=== PATIENT | female | born 1960 | race Caucasian/White ===

== ENCOUNTER → 2018-10-06 | Outpatient (CLI) | payer OTHER ==
--- NOTE | 2018-10-06 11:31 | MM ---
Reason for exam: screening (asymptomatic). Baseline mammogram. History: Patient is postmenopausal and history of other cancer. Physical Findings: Nurse did not find any significant physical abnormalities on exam. MG Screening Mammo w CAD Bilateral CC and MLO view(s) were taken. The breast tissue is heterogeneously dense. This may lower the sensitivity of mammography. Focal asymmetry right middle posterior depth upper inner quadrant. These results were verbally communicated with the patient and result sheet given to the patient on 10/06/18. ASSESSMENT: Incomplete: need additional imaging evaluation, BI-RAD 0 RECOMMENDATION: Special view mammogram of the right breast. If lesion persists on supplemental views, image directed ultrasound is recommended. [facility] will attempt to contact patient to return for supplemental views and ultrasound if indicated.
--- NOTE | 2018-10-06 11:32 | MM ---
Reason for exam: additional evaluation requested from abnormal screening. History: Patient is postmenopausal and history of other cancer. Physical Findings: Breast exam preformed at baseline screening. MG Work Up Mamm w CAD RT Spot compression CC, spot compression MLO, and LM view(s) were taken of the right breast. The breast tissue is heterogeneously dense. This may lower the sensitivity of mammography. No distinct lesion persists on additional views. These results were verbally communicated with the patient and result sheet given to the patient on 10/06/18. ASSESSMENT: Negative, BI-RAD 1 RECOMMENDATION: Return to routine screening mammogram schedule for both breasts.
== END | disposition home or self-care (01) ==
LOC: RADMAMWWP 10:11
PROVIDERS: ATTEND Family Medicine
DX: Z12.31 Encounter for screening mammogram for malignant neoplasm of breast (principal); R92.8 Other abnormal and inconclusive findings on diagnostic imaging of breast
CPT/HCPCS: 77065; 77067

== ENCOUNTER → 2019-08-17 | Outpatient (CLI) | payer OTHER | END | disposition home or self-care (01) | LOC: LABWHC1 09:52 | PROVIDERS: ATTEND Family Medicine | DX: Z12.11 Encounter for screening for malignant neoplasm of colon (principal) | CPT/HCPCS: 36415; 82272 ==

== ENCOUNTER → 2019-11-30 | Outpatient (CLI) | payer OTHER ==
--- NOTE | 2019-11-30 12:07 | CTL ---
EXAMINATION TYPE: CT Low Dose Lung DATE OF EXAM ORDERED: 11/30/2019 HISTORY: 59-year-old female Personal history of tobacco use. Lung cancer screening CT DLP: [address] CTDI: 1.76 mGy Automated exposure control for dose reduction was used. SCREENING VISIT: Baseline exam COMPARISON: None TECHNIQUE: Low dose computed tomography scan was performed through the chest at 1 mm thick sections. Coronal and sagittal reconstructions performed. Coronal MIP reconstruction also generated. CT DIAGNOSTIC QUALITY: Satisfactory FINDINGS: Heart normal size without pericardial effusion. Ascending aorta borderline ectatic at 3.6 cm. Mild atherosclerotic arch calcifications with conventio nal branching anatomy. A few nonenlarged mediastinal lymph nodes are present measuring up to 6 mm. No thoracic lymphadenopat hy by CT size criteria. Mild centrilobular emphysema. Mild diffuse bronchial wall thickening. Strandy atelectasis in the ri ght middle lobe. No consolidation or pleural effusion. Calcified granuloma peripheral right upper lobe, axial image 74. Calcified granuloma left midlung, axial image 166. 3 mm left lower lobe pulmonary nodule, axial image 183. Small fat-containing left Bochdalek hernia. Visualized upper abdomen shows an indeterminate 2.1 cm hypodense lesion medial upper pole right kidne y, probable cortical cyst. Renal ultrasound can confirm. Bones: Mild degenerative disc disease mid to lower thoracic spine. IMPRESSION: 1. LungRADS 2 - benign; a couple calcified granulomas and a tiny 3 mm left lower lobe pulmonary nodul e at baseline. 2. COPD with mild emphysema. 3. A 2.1 cm hypodense, indeterminate lesion in the upper pole of the right kidney. RECOMMENDATION: 1. Continue annual low-dose lung cancer screening CT. 2. Renal ultrasound to confirm a benign 2.1 cm right upper pole renal cyst. 3. Smoking cessation. FOLLOW UP CT CHEST RECOMMENDATION: [address] LUNG RAD: Lung-Rad 2 Benign Appearance or Behavior
== END | disposition home or self-care (01) ==
LOC: RADCTMAIN 10:54
PROVIDERS: ATTEND Family Medicine
DX: Z12.2 Encounter for screening for malignant neoplasm of respiratory organs (principal); R91.1 Solitary pulmonary nodule; J43.9 Emphysema, unspecified; J98.4 Other disorders of lung; F17.210 Nicotine dependence, cigarettes, uncomplicated

== ENCOUNTER 2019-12-05 18:14 | Observation (INO) | payer OTHER ==
[2019-12-05] MEDS ORDERED: SODIUM CHLORIDE 0.9% 1,000 ML IV STA ×2 (19:32)
[2019-12-05] MEDS ORDERED: MORPHINE SULFATE 4 MG/ML SYRINGE IV STA (19:32)
[2019-12-05] MEDS ORDERED: PANTOPRAZOLE 40 MG/10 ML VIAL IVP STA (19:32)
[2019-12-05] MEDS ORDERED: KETOROLAC 30 MG/ML 1 ML VIAL IVP STA (19:32)
[2019-12-05 19:58] LABS: Basophils # (A) 0.3 k/uL (0-0.2); Basophils % (A) 2 %; Eosinophils # (A) 0.3 k/uL (0-0.7); Eosinophils % (A) 2 %; HCT 39.5 % (34.0-46.0); HGB 12.7 gm/dL (11.4-16.0); Lymphocytes # (A) 1.6 k/uL (1.0-4.8); Lymphocytes % (A) 13 %; MCH 31.2 pg (25.0-35.0); MCHC 32.1 g/dL (31.0-37.0); MCV 97.3 fL (80.0-100.0); Mean Platelet Volume 7.9; Monocytes # (A) 0.5 k/uL (0-1.0); Monocytes % (A) 5 %; Neutrophils # (A) 8.9 k/uL (1.3-7.7); Neutrophils % (A) 76 %; Platelet Count 321 k/uL (150-450); RBC 4.05 m/uL (3.80-5.40); RDW 12.1 % (11.5-15.5); WBC 11.7 k/uL (3.8-10.6)
--- NOTE | 2019-12-05 20:10 | ED ---
Abdominal Pain HPI - General Chief Complaint: Abdominal Pain Stated Complaint: right side pain Time Seen by Provider: 12/05/19 19:05 Source: patient, RN notes reviewed, old records reviewed Mode of arrival: ambulatory Limitations: no limitations - History of Present Illness Initial Comments: This is a 59-year-old female presents emergency department today with sharp stabbing right lower quadrant abdominal pain. Patient's symptoms started over the weekend between Wednesday and Wednesday. She states she's had some diarrhea today as well. Denies any specific fevers or chills. She denies any vomiting but does feel nauseated. Patient has had no changes in urination. She does report pain was worse going over bumps in the car and radiates towards her back. - Related Data Allergies Allergy/AdvReac Type Severity Reaction Status Date / Time Penicillins Allergy Anaphylaxis Verified 12/05/19 18:49 Review of Systems ROS Statement: Those systems with pertinent positive or pertinent negative responses have been documented in the HPI. ROS Other: All systems not noted in ROS Statement are negative. Past Medical History Past Medical History: COPD, Hyperlipidemia, Hypertension History of Any Multi-Drug Resistant Organisms: None Reported Past Surgical History: Back Surgery, Hysterectomy Additional Past Surgical History / Comment(s): dental surgery Past Psychological History: Depression Smoking Status: Current every day smoker Past Alcohol Use History: Occasional Past Drug Use History: None Reported General Exam - General Exam Comments Initial Comments: Alert and oriented 59-year-old female. Moderate discomfort. Limitations: no limitations Head exam: Present: atraumatic, normocephalic, normal inspection Eye exam: Present: normal appearance, PERRL, EOMI. Absent: scleral icterus, conjunctival injection, periorbital swelling ENT exam: Present: normal exam, mucous membranes moist Neck exam: Present: normal inspection. Absent: tenderness, meningismus, lymphadenopathy Respiratory exam: Present: normal lung sounds bilaterally. Absent: respiratory distress, wheezes, rales, rhonchi, stridor Cardiovascular Exam: Present: regular rate, normal rhythm, normal heart sounds. Absent: systolic murmur, diastolic murmur, rubs, gallop, clicks GI/Abdominal exam: Present: soft, tenderness (RLQ tenderness), normal bowel sounds. Absent: distended, guarding, rebound, rigid Back exam: Present: normal inspection Neurological exam: Present: alert, oriented X3, CN II-XII intact Psychiatric exam: Present: normal affect, normal mood Skin exam: Present: warm, dry, intact, normal color. Absent: rash Course Vital Signs 12/05/19 12/05/19 18:44 19:48 Temperature 98.4 F 98 F Pulse Rate 81 80 Respiratory 20 18 Rate Blood Pressure 143/77 166/78 O2 Sat by Pulse 95 100 Oximetry Medical Decision Making - Medical Decision Making 59-year-old female presents today with complaints of acute onset of right-sided abdominal pain. Symptoms starting over the weekend. At this time Patient vital signs are stable. She has guarding and tenderness over the right lower quadrant. Computed tomography scan was ordered. Evidence of acute appendi citis. Started on Rocephin and Flagyl due to history penicillins. Discussed case with Dr. Khan And discussed case with Dr. Shaw. - Lab Data Result diagrams: 12/05/19 11:44 12/05/19 11:44 Lab Results 12/05/19 12/05/19 12/05/19 Range/Units 11:44 11:44 11:44 WBC 11.7 H (3.8-10.6) k/uL RBC 4.05 (3.80-5.40) m/uL Hgb 12.7 (11.4-16.0) gm/dL Hct 39.5 (34.0-46.0) % MCV 97.3 (80.0-100.0) fL MCH 31.2 (25.0-35.0) pg MCHC 32.1 (31.0-37.0) g/dL RDW 12.1 (11.5-15.5) % Plt Count 321 (150-450) k/uL Neutrophils % 76 % Lymphocytes % 13 % Monocytes % 5 % Eosinophils % 2 % Basophils % 2 % Neutrophils # 8.9 H (1.3-7.7) k/uL Lymphocytes # 1.6 (1.0-4.8) k/uL Monocytes # 0.5 (0-1.0) k/uL Eosinophils # 0.3 (0-0.7) k/uL Basophils # 0.3 H (0-0.2) k/uL PT 9.3 (9.0-12.0) sec INR 0.8 (<1.2) APTT 26.9 (22.0-30.0) sec Sodium 140 (137-145) mmol/L Potassium 3.8 (3.5-5.1) mmol/L Chloride 102 (98-107) mmol/L Carbon Dioxide 31 H (22-30) mmol/L Anion Gap 7 mmol/L BUN 14 (7-17) mg/dL Creatinine 0.68 (0.52-1.04) mg/dL Est GFR (CKD-EPI)AfAm >90 (>60 ml/min/1.73 sqM) Est GFR (CKD-EPI)NonAf >90 (>60 ml/min/1.73 sqM) Glucose 123 H (74-99) mg/dL Plasma Lactic Acid Jose (0.7-2.0) mmol/L Calcium 9.6 (8.4-10.2) mg/dL Total Bilirubin 0.4 (0.2-1.3) mg/dL AST 19 (14-36) U/L ALT 14 (4-34) U/L Alkaline Phosphatase 76 (38-126) U/L Total Protein 7.1 (6.3-8.2) g/dL Albumin 4.5 (3.5-5.0) g/dL Amylase 45 (30-110) U/L Lipase 81 (23-300) U/L Urine Color Urine Appearance (Clear) Urine pH (5.0-8.0) Ur Specific [place] (1.001-1.035) Urine Protein (Negative) Urine Glucose (UA) (Negative) Urine Ketones (Negative) Urine Blood (Negative) Urine Nitrite (Negative) Urine Bilirubin (Negative) Urine Urobilinogen (<2.0) mg/dL Ur Leukocyte Esterase (Negative) Urine RBC (0-5) /hpf Urine WBC (0-5) /hpf Ur Squamous Epith Cells (0-4) /hpf Urine Mucus (None) /hpf 12/05/19 12/05/19 Range/Units 11:44 11:44 WBC (3.8-10.6) k/uL RBC (3.80-5.40) m/uL Hgb (11.4-16.0) gm/dL Hct (34.0-46.0) % MCV (80.0-100.0) fL MCH (25.0-35.0) pg MCHC (31.0-37.0) g/dL RDW (11.5-15.5) % Plt Count (150-450) k/uL Neutrophils % % Lymphocytes % % Monocytes % % Eosinophils % % Basophils % % Neutrophils # (1.3-7.7) k/uL Lymphocytes # (1.0-4.8) k/uL Monocytes # (0-1.0) k/uL Eosinophils # (0-0.7) k/uL Basophils # (0-0.2) k/uL PT (9.0-12.0) sec INR (<1.2) APTT (22.0-30.0) sec Sodium (137-145) mmol/L Potassium (3.5-5.1) mmol/L Chloride (98-107) mmol/L Carbon Dioxide (22-30) mmol/L Anion Gap mmol/L BUN (7-17) mg/dL Creatinine (0.52-1.04) mg/dL Est GFR (CKD-EPI)AfAm (>60 ml/min/1.73 sqM) Est GFR (CKD-EPI)NonAf (>60 ml/min/1.73 sqM) Glucose (74-99) mg/dL Plasma Lactic Acid Jose 0.8 (0.7-2.0) mmol/L Calcium (8.4-10.2) mg/dL Total Bilirubin (0.2-1.3) mg/dL AST (14-36) U/L ALT (4-34) U/L Alkaline Phosphatase (38-126) U/L Total Protein (6.3-8.2) g/dL Albumin (3.5-5.0) g/dL Amylase (30-110) U/L Lipase (23-300) U/L Urine Color Yellow Urine Appearance Clear (Clear) Urine pH 6.0 (5.0-8.0) Ur Specific [place] 1.023 (1.001-1.035) Urine Protein Trace H (Negative) Urine Glucose (UA) Negative (Negative) Urine Ketones Negative (Negative) Urine Blood Small H (Negative) Urine Nitrite Negative (Negative) Urine Bilirubin Negative (Negative) Urine Urobilinogen <2.0 (<2.0) mg/dL Ur Leukocyte Esterase Negative (Negative) Urine RBC 6 H (0-5) /hpf Urine WBC 2 (0-5) /hpf Ur Squamous Epith Cells 1 (0-4) /hpf Urine Mucus Moderate H (None) /hpf - Radiology Data Radiology results: report reviewed Thickened appendix with surrounding inflammatory changes related to acute appen dicitis. Disposition Clinical Impression: Acute appendicitis Disposition: ADMITTED IP TO THIS HOSP Condition: Good Is patient prescribed a controlled substance at d/c from ED?: No Referrals: Markus Barger [Primary Care Provider] - 1-2 days Time of Disposition: 21:12
[2019-12-05 20:11] LABS: ALT 14 U/L (4-34); AST 19 U/L (14-36); African American GFR (CKD) >90 (>60 ml/min/1.73 sqM); Albumin 4.5 g/dL (3.5-5.0); Alkaline Phosphatase 76 U/L (38-126); Amylase 45 U/L (30-110); Anion Gap 7 mmol/L; Appearance,Urine Clear (Clear); Bilirubin,Urine Negative (Negative); Blood Urea Nitrogen 14 mg/dL (7-17); Blood,Urine Small (Negative); Calcium 9.6 mg/dL (8.4-10.2); Carbon Dioxide 31 mmol/L (22-30); Chloride 102 mmol/L (98-107); Color,Urine Yellow; Glucose 123 mg/dL (74-99); Glucose,Urine (UA) Negative (Negative); Ketones,Urine Negative (Negative); Leukocyte Esterase,Urine Negative (Negative); Mucus,Urine Moderate /hpf; Nitrite,Urine Negative (Negative); Non-African American GFR(CKD) >90 (>60 ml/min/1.73 sqM); Potassium 3.8 mmol/L (3.5-5.1); Protein,Urine Trace (Negative); RBC,Urine 6 /hpf (0-5); Sodium 140 mmol/L (137-145); Specific Gravity,Urine 1.023 (1.001-1.035); Squamous Epithelial Cell,Urine 1 /hpf (0-4); Total Bilirubin 0.4 mg/dL (0.2-1.3); Total Protein 7.1 g/dL (6.3-8.2); Urobilinogen,Urine <2.0 mg/dL (<2.0); WBC,Urine 2 /hpf (0-5)
[2019-12-05 20:24] LABS: INR 0.8 (<1.2); Partial Thromboplastin Time 26.9 sec (22.0-30.0); Prothrombin Time 9.3 sec (9.0-12.0)
[2019-12-05] MEDS: ONDANSETRON 4 MG/2 ML VIAL IVP STA (20:28)
--- NOTE | 2019-12-05 20:48 | CT ---
EXAMINATION TYPE: CT abdomen pelvis w con DATE OF EXAM: 12/05/2019 COMPARISON: None HISTORY: Right sided pelvic pain. CT DLP: 773 mGycm Automated exposure control for dose reduction was used. CONTRAST: Performed with IV Contrast, patient injected with 100ml mL of Isovue 300. Multiple axial sections were obtained from the diaphragm to the floor the pelvis with intravenous con trast. Lung bases are clear. There is no pleural effusion. Heart size is normal. There is no pericardial eff usion. Stomach is intact. Liver and spleen appear intact. There is no pancreatic mass. Gallbladder appears n ormal. Bile ducts are not dilated. There is no adrenal mass. Kidneys show satisfactory contrast opacification. There is no hydronephrosi s. There is 3 cm cortical cyst upper pole right kidney. There is no retroperitoneal adenopathy. Bladd er distends smoothly. There is no inguinal hernia. There is some fat stranding in the right lower quadrant with thickened fluid-filled appendix. Appendi x measures up to 11 mm. There is no sign of a bowel obstruction. There is no evidence of free air. There are spondylotic sharma ges in the lumbar spine with disc space narrowing L4-5 and L5-S1. There is no compression fracture. B sharmin pelvis is intact. IMPRESSION: Thickened appendix with surrounding inflammatory changes related to acute appendicitis. No abscess. Mild atherosclerotic vascular disease.
[2019-12-05] MEDS ORDERED: cefTRIAXone IN SWFI 1,000 MG/10 ML SYRINGE IVP STA (20:53)
[2019-12-05] MEDS ORDERED: metroNIDAZOLE-NS PMX 500 MG in SALINE 1 100ML.BAG IVPB STA (20:53)
[2019-12-05] MEDS ORDERED: IBUPROFEN 400 MG TAB PO PRN (21:12)
[2019-12-05] MEDS ORDERED: NALOXONE 0.4 MG/ML 1 ML VIAL IV PRN (21:12)
[2019-12-05] MEDS ORDERED: ACETAMINOPHEN TAB 325 MG TAB PO PRN (21:12)
[2019-12-05] MEDS ORDERED: LORazepam 2 MG/ML INJ IV PRN (21:12)
[2019-12-05] MEDS: KETOROLAC 30 MG/ML 1 ML VIAL IVP PRN (22:16)
[2019-12-05] MEDS: SODIUM CHLORIDE 0.9% 1,000 ML IV SCH (22:17)
[2019-12-06] MEDS: MORPHINE SULFATE 4 MG/ML SYRINGE IV PRN ×6 (00:28→23:40)
[2019-12-06] MEDS: metroNIDAZOLE-NS PMX 500 MG in SALINE 1 100ML.BAG IVPB SCH ×3 (05:31→22:03)
[2019-12-06 07:12] LABS: Glucose,Whole Blood 100 mg/dL (75-99)
[2019-12-06] MEDS: PANTOPRAZOLE 40 MG/10 ML VIAL IV SCH (09:31)
[2019-12-06] MEDS: SODIUM CHLORIDE 0.9% 1,000 ML IV SCH ×2 (09:32→14:27)
[2019-12-06] MEDS ORDERED: IV FLUID CONTINUATION 1,000 ML IV ONE (10:24)
--- NOTE | 2019-12-06 10:39 | P.GSHP ---
History of Present Illness H&P Date: 12/06/19 Chief Complaint: Right lower quadrant pain This a 59-year-old female who presents presented to the emergency room with right lower quadrant pain. Patient's workup found have evidence of acute appendicitis. Past Medical History Past Medical History: COPD, Hyperlipidemia, Hypertension History of Any Multi-Drug Resistant Organisms: None Reported Past Surgical History: Back Surgery, Hysterectomy Additional Past Surgical History / Comment(s): dental surgery. right shoulder surgery Past Anesthesia/Blood Transfusion Reactions: No Reported Reaction Past Psychological History: Anxiety, Depression Smoking Status: Current every day smoker Past Alcohol Use History: Occasional Past Drug Use History: None Reported - Past Family History Father History Unknown: Yes Mother Family Medical History: COPD Brother(s) Additional Family Medical History / Comment(s): skin cancer stage 4 Medications and Allergies Home Medications Medication Instructions Recorded Confirmed Type FLUoxetine HCL [PROzac] 20 mg PO DAILY 12/05/19 12/05/19 History Hydrochlorothiazide 25 mg PO DAILY 12/05/19 12/05/19 History Hydrocortisone Cream 1 applic TOPICAL TID PRN 12/05/19 12/05/19 History [Hydrocortisone 2.5% Cream] Losartan Potassium [Cozaar] 100 mg PO DAILY 12/05/19 12/05/19 History Omeprazole 40 mg PO DAILY 12/05/19 12/05/19 History Rosuvastatin [Crestor] 10 mg PO HS 12/05/19 12/05/19 History Allergies Allergy/AdvReac Type Severity Reaction Status Date / Time Penicillins Allergy Anaphylaxis Verified 12/05/19 21:28 Surgical - Exam Vital Signs Temp Pulse Resp BP Pulse Ox 98.4 F 81 20 143/77 95 12/05/19 18:44 12/05/19 18:44 12/05/19 18:44 12/05/19 18:44 12/05/19 18:44 - General well developed, well nourished, no distress - Eyes PERRL - ENT normal pinna - Neck no masses - Respiratory normal expansion - Cardiovascular Rhythm: regular - Abdomen Marked right lower quadrant tenderness Abdomen: soft Results - Labs 12/05/19 11:44 12/05/19 11:44 Abnormal Lab Results - Last 24 Hours (Table) 12/05/19 12/05/19 12/05/19 Range/Units 11:44 11:44 11:44 WBC 11.7 H (3.8-10.6) k/uL Neutrophils # 8.9 H (1.3-7.7) k/uL Basophils # 0.3 H (0-0.2) k/uL Carbon Dioxide 31 H (22-30) mmol/L Glucose 123 H (74-99) mg/dL POC Glucose (mg/dL) (75-99) mg/dL Urine Protein Trace H (Negative) Urine Blood Small H (Negative) Urine RBC 6 H (0-5) /hpf Urine Mucus Moderate H (None) /hpf 12/06/19 Range/Units 07:10 WBC (3.8-10.6) k/uL Neutrophils # (1.3-7.7) k/uL Basophils # (0-0.2) k/uL Carbon Dioxide (22-30) mmol/L Glucose (74-99) mg/dL POC Glucose (mg/dL) 100 H (75-99) mg/dL Urine Protein (Negative) Urine Blood (Negative) Urine RBC (0-5) /hpf Urine Mucus (None) /hpf Diabetes panel 12/05/19 Range/Units 11:44 Sodium 140 (137-145) mmol/L Potassium 3.8 (3.5-5.1) mmol/L Chloride 102 (98-107) mmol/L Carbon Dioxide 31 H (22-30) mmol/L BUN 14 (7-17) mg/dL Creatinine 0.68 (0.52-1.04) mg/dL Glucose 123 H (74-99) mg/dL Calcium 9.6 (8.4-10.2) mg/dL AST 19 (14-36) U/L ALT 14 (4-34) U/L Alkaline Phosphatase 76 (38-126) U/L Total Protein 7.1 (6.3-8.2) g/dL Albumin 4.5 (3.5-5.0) g/dL Calcium panel 12/05/19 Range/Units 11:44 Calcium 9.6 (8.4-10.2) mg/dL Albumin 4.5 (3.5-5.0) g/dL Pituitary panel 12/05/19 Range/Units 11:44 Sodium 140 (137-145) mmol/L Potassium 3.8 (3.5-5.1) mmol/L Chloride 102 (98-107) mmol/L Carbon Dioxide 31 H (22-30) mmol/L BUN 14 (7-17) mg/dL Creatinine 0.68 (0.52-1.04) mg/dL Glucose 123 H (74-99) mg/dL Calcium 9.6 (8.4-10.2) mg/dL Adrenal panel 12/05/19 Range/Units 11:44 Sodium 140 (137-145) mmol/L Potassium 3.8 (3.5-5.1) mmol/L Chloride 102 (98-107) mmol/L Carbon Dioxide 31 H (22-30) mmol/L BUN 14 (7-17) mg/dL Creatinine 0.68 (0.52-1.04) mg/dL Glucose 123 H (74-99) mg/dL Calcium 9.6 (8.4-10.2) mg/dL Total Bilirubin 0.4 (0.2-1.3) mg/dL AST 19 (14-36) U/L ALT 14 (4-34) U/L Alkaline Phosphatase 76 (38-126) U/L Total Protein 7.1 (6.3-8.2) g/dL Albumin 4.5 (3.5-5.0) g/dL Assessment and Plan Assessment: Acute appendicitis. We'll perform laparoscopic appendectomy
--- NOTE | 2019-12-06 10:40 | P.GSHP ---
History of Present Illness H&P Date: 12/06/19 Chief Complaint: abdominal pain CHIEF COMPLAINT: Abdominal pain HISTORY OF PRESENT ILLNESS: 59-year-old female who presented to emergency room with a chief complaint of abdominal pain. Patient reports the pain is mostly located in the right lower quadrant. Patient also reports nausea but denies vomiting. She reports some loose stools. She denies fever or chills. PAST MEDICAL HISTORY: See list. PAST SURGICAL HISTORY: See list. SOCIAL HISTORY: No illicit drug use. REVIEW OF SYSTEMS: CONSTITUTIONAL: Denies fever or chills. HEENT: Denies blurred vision, vision changes, or eye pain. Denies hemoptysis CARDIOVASCULAR: Denies chest pain or pressure. RESPIRATORY: No shortness of breath. GASTROINTESTINAL: Refer to HPI for pertinent findings HEMATOLOGIC: Denies bleeding disorders. GENITOURINARY: Denies any blood in urine. SKIN: Denies pruitis. Denies rash. PHYSICAL EXAM: VITAL SIGNS: Reviewed. GENERAL: Well-developed in no acute distress. HEENT: No sclera icterus. Extraocular movements grossly intact. Moist buccal mucosa. Head is atraumatic, normocephalic. ABDOMEN: Soft. Nondistended. Tenderness upon palpation of right lower quadrant. NEUROLOGIC: Alert and oriented. Cranial nerves II through XII grossly intact. LABORATORY DATA: WBC 11.7. Hemoglobin 12.7. Platelet count 321. Lactic acid 0.8. IMAGING: CT abdomen and pelvis: Thickened appendix with surrounding inflammatory changes related to acute appendicitis ASSESSMENT: 1. Abdominal pain 2. Acute appendicitis PLAN: NPO. Continue IV fluids Monitor WBC. Continue IV antibiotics Consult Dr. Gutiérrez for medical management Pain control Patient to undergo laparoscopic appendectomy today with Dr. Shaw Nurse practitioner note has been reviewed by physician. Signing provider agrees with the documented findings, assessment, and plan of care. Past Medical History Past Medical History: COPD, Hyperlipidemia, Hypertension History of Any Multi-Drug Resistant Organisms: None Reported Past Surgical History: Back Surgery, Hysterectomy Additional Past Surgical History / Comment(s): dental surgery. right shoulder surgery Past Anesthesia/Blood Transfusion Reactions: No Reported Reaction Past Psychological History: Anxiety, Depression Smoking Status: Current every day smoker Past Alcohol Use History: Occasional Past Drug Use History: None Reported - Past Family History Father History Unknown: Yes Mother Family Medical History: COPD Brother(s) Additional Family Medical History / Comment(s): skin cancer stage 4 Medications and Allergies Home Medications Medication Instructions Recorded Confirmed Type FLUoxetine HCL [PROzac] 20 mg PO DAILY 12/05/19 12/05/19 History Hydrochlorothiazide 25 mg PO DAILY 12/05/19 12/05/19 History Hydrocortisone Cream 1 applic TOPICAL TID PRN 12/05/19 12/05/19 History [Hydrocortisone 2.5% Cream] Losartan Potassium [Cozaar] 100 mg PO DAILY 12/05/19 12/05/19 History Omeprazole 40 mg PO DAILY 12/05/19 12/05/19 History Rosuvastatin [Crestor] 10 mg PO HS 12/05/19 12/05/19 History Allergies Allergy/AdvReac Type Severity Reaction Status Date / Time Penicillins Allergy Anaphylaxis Verified 12/05/19 21:28 Surgical - Exam Vital Signs Temp Pulse Resp BP Pulse Ox 98.4 F 81 20 143/77 95 12/05/19 18:44 12/05/19 18:44 12/05/19 18:44 12/05/19 18:44 12/05/19 18:44 Results - Labs 12/05/19 11:44 12/05/19 11:44 Abnormal Lab Results - Last 24 Hours (Table) 12/05/19 12/05/19 12/05/19 Range/Units 11:44 11:44 11:44 WBC 11.7 H (3.8-10.6) k/uL Neutrophils # 8.9 H (1.3-7.7) k/uL Basophils # 0.3 H (0-0.2) k/uL Carbon Dioxide 31 H (22-30) mmol/L Glucose 123 H (74-99) mg/dL POC Glucose (mg/dL) (75-99) mg/dL Urine Protein Trace H (Negative) Urine Blood Small H (Negative) Urine RBC 6 H (0-5) /hpf Urine Mucus Moderate H (None) /hpf 12/06/19 Range/Units 07:10 WBC (3.8-10.6) k/uL Neutrophils # (1.3-7.7) k/uL Basophils # (0-0.2) k/uL Carbon Dioxide (22-30) mmol/L Glucose (74-99) mg/dL POC Glucose (mg/dL) 100 H (75-99) mg/dL Urine Protein (Negative) Urine Blood (Negative) Urine RBC (0-5) /hpf Urine Mucus (None) /hpf Diabetes panel 12/05/19 Range/Units 11:44 Sodium 140 (137-145) mmol/L Potassium 3.8 (3.5-5.1) mmol/L Chloride 102 (98-107) mmol/L Carbon Dioxide 31 H (22-30) mmol/L BUN 14 (7-17) mg/dL Creatinine 0.68 (0.52-1.04) mg/dL Glucose 123 H (74-99) mg/dL Calcium 9.6 (8.4-10.2) mg/dL AST 19 (14-36) U/L ALT 14 (4-34) U/L Alkaline Phosphatase 76 (38-126) U/L Total Protein 7.1 (6.3-8.2) g/dL Albumin 4.5 (3.5-5.0) g/dL Calcium panel 12/05/19 Range/Units 11:44 Calcium 9.6 (8.4-10.2) mg/dL Albumin 4.5 (3.5-5.0) g/dL Pituitary panel 12/05/19 Range/Units 11:44 Sodium 140 (137-145) mmol/L Potassium 3.8 (3.5-5.1) mmol/L Chloride 102 (98-107) mmol/L Carbon Dioxide 31 H (22-30) mmol/L BUN 14 (7-17) mg/dL Creatinine 0.68 (0.52-1.04) mg/dL Glucose 123 H (74-99) mg/dL Calcium 9.6 (8.4-10.2) mg/dL Adrenal panel 12/05/19 Range/Units 11:44 Sodium 140 (137-145) mmol/L Potassium 3.8 (3.5-5.1) mmol/L Chloride 102 (98-107) mmol/L Carbon Dioxide 31 H (22-30) mmol/L BUN 14 (7-17) mg/dL Creatinine 0.68 (0.52-1.04) mg/dL Glucose 123 H (74-99) mg/dL Calcium 9.6 (8.4-10.2) mg/dL Total Bilirubin 0.4 (0.2-1.3) mg/dL AST 19 (14-36) U/L ALT 14 (4-34) U/L Alkaline Phosphatase 76 (38-126) U/L Total Protein 7.1 (6.3-8.2) g/dL Albumin 4.5 (3.5-5.0) g/dL
[2019-12-06] MEDS ORDERED: LIDOCAINE 1% INJ 10MG/ML (20 ML MDV) ONE (10:42)
[2019-12-06] MEDS ORDERED: GLYCOPYRROLATE 0.2 MG/ML 2 ML VIAL ONE (10:42)
[2019-12-06] MEDS ORDERED: NEOSTIGMINE 1 MG/ML 10 ML VIAL ONE (10:42)
[2019-12-06] MEDS ORDERED: SUCCINYLCHOLINE CHLORIDE 100 MG/5 ML SYR IV ONE (10:42)
[2019-12-06] MEDS ORDERED: fentaNYL (PF) 50 MCG/ML 2 ML AMP ONE (10:42)
[2019-12-06] MEDS ORDERED: ROCURONIUM BROMIDE 10 MG/ML 10 ML VIAL IV ONE (10:42)
[2019-12-06] MEDS ORDERED: PROPOFOL 10 MG/ML 20 ML VIAL IV ONE (10:42)
[2019-12-06] MEDS ORDERED: MIDAZOLAM 2 MG/2 ML VIAL ONE (10:42)
[2019-12-06] MEDS ORDERED: HEPARIN SODIUM,PORCINE 5,000 UNIT/ML 1 ML VIAL SQ ONE (10:43)
[2019-12-06] MEDS: ONDANSETRON 4 MG/2 ML VIAL IVP STA (10:44)
[2019-12-06 10:47] LABS: Glucose,Whole Blood 101 mg/dL (75-99)
[2019-12-06] MEDS ORDERED: LACTATED RINGERS 1,000 ML IV ONE (11:09)
[2019-12-06] MEDS ORDERED: BUPIVACAIN-EPI 0.25%-1:200,000 30 ML VIAL SQ ONE (11:11)
[2019-12-06 11:44] VITALS: RESP 16
--- NOTE | 2019-12-06 11:44 | P.OP ---
Date of Procedure: 12/06/19 Preoperative Diagnosis: Acute appendicitis Postoperative Diagnosis: Acute appendicitis with microperforation Procedure(s) Performed: Laparoscopic appendectomy Anesthesia: TYRA Surgeon: Samuel Shaw Estimated Blood Loss (ml): 10 Pathology: other (Appendix) Condition: stable Disposition: PACU Description of Procedure: The patient's placed on the operating table in the supine position. The patient received general anesthesia. The abdomen was prepped and draped in the usual sterile fashion. The skin was anesthetized 1% local Xylocaine at the trocar sites. Using an 11 blade the skin was incised at the umbilicus. The umbilicus was grasped with a [place] clamp and then a Veress needle was placed into the peritoneal cavity. Position of the Veress needle was confirmed with positive drop test. After adequate insufflation a 5 mm trocar was placed into the peritoneal cavity. The abdomen was further insufflated. And then the laparoscope was placed in the peritoneal cavity. Next a 5 mm trocar was placed in the midline suprapubic position. And then a 10 mm trocar was placed in the midline epigastric position. The patient was rotated with the right side up and in Trendelenburg. The appendix was visualized. The appendix appeared to have microperforation with a fibropurulent peel the appendix. The appendix appeared to be inflamed. The appendix was grasped and then using the Harmonic scissors the mesoappendix was divided. A PDS Endoloop was then placed around the base of the appendix. And then the appendix was divided using Harmonic scissors. The appendix was placed into an Endo Catch and brought out through the 10 mm trocar site. The abdomen was irrigated. There is no bleeding seen. The trochars withdrawn. The skin was closed interrupted 3-0 Monocryl suture. Dermabond dressing was applied. Patient was sent to recovery room in stable condition.
[2019-12-06] MEDS: KETOROLAC 30 MG/ML 1 ML VIAL IVP PRN ×3 (11:58→23:41)
[2019-12-06] MEDS ORDERED: HYDROmorphone 0.5 MG/0.5 ML SYRINGE IVP ONE (12:14)
[2019-12-06 12:43] LABS: Glucose,Whole Blood 110 mg/dL (75-99)
[2019-12-06] MEDS ORDERED: HYDROCORTISONE 2.5% RECTAL CREAM 30 GM TUBE RECTAL PRN (12:45)
[2019-12-06] MEDS ORDERED: ONDANSETRON 4 MG/2 ML VIAL IVP PRN (14:20)
--- NOTE | 2019-12-06 14:27 | P.CONS ---
History of Present Illness - Reason for Consult Consult date: 12/06/19 hypertension Requesting physician: Samuel Shaw - Chief Complaint abdominal pain - History of Present Illness Patient is a 59-year-old female past medical history of newly diagnosed COPD not on inhalers, hypertension, dyslipidemia, and GERD who presented to the emergency department with complaints of abdominal pain. She was ultimately found to have acute pancreatitis and sepsis only underwent laparoscopic appendectomy on the morning of 12/06/19. We're asked to consult for hypertensive management. Patient seen and examined at bedside. She is having some lower abdominal pain worse in the right lower quadrant after surgery, no nausea, no vomiting, has not passing gas yet. She denies any chest pain or shortness of breath. She does complain of a headache and she is not having caffeine and she typically drinks significant amounts of caffeine on a daily basis. She follows with Dr. Barger. She states her COPD was recently found on a CAT scan she quit smoking, has not started any inhalers at this time. She denies any recent fevers or chills. Review of Systems Pertinent positives and negatives as discussed in HPI, a complete review of systems was performed and all other systems are negative. Past Medical History Past Medical History: COPD, Hyperlipidemia, Hypertension History of Any Multi-Drug Resistant Organisms: None Reported Past Surgical History: Back Surgery, Hysterectomy Additional Past Surgical History / Comment(s): dental surgery. right shoulder surgery Past Anesthesia/Blood Transfusion Reactions: No Reported Reaction Past Psychological History: Anxiety, Depression Smoking Status: Former smoker Past Alcohol Use History: Occasional Past Drug Use History: None Reported Additional History: Quit smoking on 12/02/19, lives with her , no assistive devices - Past Family History Father History Unknown: Yes Mother Family Medical History: COPD Brother(s) Additional Family Medical History / Comment(s): skin cancer stage 4 Medications and Allergies Home Medications Medication Instructions Recorded Confirmed Type FLUoxetine HCL [PROzac] 20 mg PO DAILY 12/05/19 12/05/19 History Hydrochlorothiazide 25 mg PO DAILY 12/05/19 12/05/19 History Hydrocortisone Cream 1 applic TOPICAL TID PRN 12/05/19 12/05/19 History [Hydrocortisone 2.5% Cream] Losartan Potassium [Cozaar] 100 mg PO DAILY 12/05/19 12/05/19 History Omeprazole 40 mg PO DAILY 12/05/19 12/05/19 History Rosuvastatin [Crestor] 10 mg PO HS 12/05/19 12/05/19 History Allergies Allergy/AdvReac Type Severity Reaction Status Date / Time Penicillins Allergy Anaphylaxis Verified 12/05/19 21:28 Physical Exam Osteopathic Statement: *. No significant issues noted on an osteopathic structural exam other than those noted in the History and Physical/Consult. Vitals: Vital Signs Temp Pulse Pulse Resp BP BP Pulse Ox 12/06/19 12:10 66 16 142/69 96 12/06/19 11:56 65 16 144/64 99 12/06/19 11:40 98.0 F 78 16 150/70 94 L 12/06/19 10:27 98.4 F 61 20 149/68 95 12/06/19 07:52 97.9 F 60 16 112/64 96 12/06/19 05:30 97.9 F 60 16 112/64 96 12/05/19 23:50 98.7 F 64 16 144/80 96 12/05/19 22:00 97.9 F 65 18 148/88 100 12/05/19 19:48 98 F 80 18 166/78 100 12/05/19 18:44 98.4 F 81 20 143/77 95 Intake and Output 12/05/19 12/06/19 12/06/19 22:59 06:59 14:59 Intake Total 1775 Output Total 5 Balance 1770 Intake: IV 975 Intake, IV Titration 800 Amount IV Fluid Continuation 1, 800 000 ml @ 0 mls/hr IV .K -MED ONE Rx#:[id number] Output: Estimated Blood Loss 5 Other: # Voids 2 Weight 69.853 kg 69.853 kg General: non toxic, no distress, appears at stated age, normal weight Derm: no unusual rashes/lesions no unusual ecchymoses, warm, dry Head: atraumatic, normocephalic, symmetric Eyes: EOMI, no lid lag, anicteric sclera, pupils equal round reactive to light ENT: Nose and ears atraumatic, no thrush, no pharyngeal erythema Neck: No thyromegaly, no cervical lymphadenopathy, trachea midline, supple Mouth: no lip lesion, mucus membranes dry Cardiovascular: S1S2 reg, no murmur, positive posterior tibial pulse bilateral, no edema, capillary refill less than 2 seconds Lungs: CTA bilateral, no rhonchi, no rales , no accessory muscle use Abdominal: soft, +tender to palpation RLQ, no guarding, no appreciable organomegaly, normal bowel sounds Ext: no gross muscle atrophy, muscle strength 5 out of 5 in all 4 extremities grossly, no contractures, Neuro: CN II-XI grossly intact, light touch intact all 4 extremities, finger to nose within normal limits, Psych: Alert, oriented, appropriate affect Results CBC & Chem 7: 12/05/19 11:44 12/05/19 11:44 Labs: Abnormal Lab Results - Last 24 Hours (Table) 12/05/19 12/05/19 12/05/19 Range/Units 11:44 11:44 11:44 WBC 11.7 H (3.8-10.6) k/uL Neutrophils # 8.9 H (1.3-7.7) k/uL Basophils # 0.3 H (0-0.2) k/uL Carbon Dioxide 31 H (22-30) mmol/L Glucose 123 H (74-99) mg/dL POC Glucose (mg/dL) (75-99) mg/dL Urine Protein Trace H (Negative) Urine Blood Small H (Negative) Urine RBC 6 H (0-5) /hpf Urine Mucus Moderate H (None) /hpf 12/06/19 12/06/19 12/06/19 Range/Units 07:10 10:44 12:41 WBC (3.8-10.6) k/uL Neutrophils # (1.3-7.7) k/uL Basophils # (0-0.2) k/uL Carbon Dioxide (22-30) mmol/L Glucose (74-99) mg/dL POC Glucose (mg/dL) 100 H 101 H 110 H (75-99) mg/dL Urine Protein (Negative) Urine Blood (Negative) Urine RBC (0-5) /hpf Urine Mucus (None) /hpf Assessment and Plan Assessment: Acute appendicitis with microperforation - Continue with Rocephin and Flagyl -Pain control -Antiemetics Hypertension -Resume hydrochlorothiazide and losartan in a.m. -Follow blood pressures Dyslipidemia -Statin therapy Recent nicotine dependency -Nicotine supplementation as needed COPD -Not chronically on inhalers will add as needed albuterol GERD -PPI DVT prophylaxis: Heparin Thank you for allowing us to participate in the care of this pleasant patient. Do not hesitate to contact us with questions. Someone can be reached from the [facility] hospitalist group all hours of the day at [phone] or via [employer].
[2019-12-06] MEDS: HEPARIN SODIUM,PORCINE 5,000 UNIT/ML 1 ML VIAL SQ SCH ×2 (16:57→22:03)
[2019-12-06 17:14] LABS: Glucose,Whole Blood 136 mg/dL (75-99)
[2019-12-06] MEDS: ATORVASTATIN 20 MG TAB PO SCH ×2 (21:13→21:15)
[2019-12-06 23:09] VITALS: TEMP 98.7
[2019-12-07] MEDS: SODIUM CHLORIDE 0.9% 1,000 ML IV SCH (03:27)
[2019-12-07] MEDS: metroNIDAZOLE-NS PMX 500 MG in SALINE 1 100ML.BAG IVPB SCH (05:21)
[2019-12-07] MEDS: MORPHINE SULFATE 4 MG/ML SYRINGE IV PRN (05:22)
[2019-12-07 06:23] VITALS: BP 123/61; PULSE 55
[2019-12-07] MEDS: HEPARIN SODIUM,PORCINE 5,000 UNIT/ML 1 ML VIAL SQ SCH (08:16)
[2019-12-07] MEDS: PANTOPRAZOLE 40 MG/10 ML VIAL IV SCH (08:17)
[2019-12-07] MEDS ORDERED: HYDROCHLOROTHIAZIDE 25 MG TAB PO SCH (09:00)
[2019-12-07] MEDS ORDERED: LOSARTAN 50 MG TAB PO SCH (09:00)
[2019-12-07] MEDS ORDERED: NON FORMULARY DRUG (Omeprazole [Omeprazole] 40 MG) PO SCH (09:00)
[2019-12-07] MEDS ORDERED: FLUoxetine HCL 20 MG CAP PO SCH (09:00)
[2019-12-07 09:20] LABS: HCT 32.6 % (34.0-46.0); HGB 10.8 gm/dL (11.4-16.0); MCH 32.4 pg (25.0-35.0); MCHC 33.1 g/dL (31.0-37.0); Mean Platelet Volume 7.7; Platelet Count 323 k/uL (150-450); RBC 3.33 m/uL (3.80-5.40); WBC 7.1 k/uL (3.8-10.6)
[2019-12-07 09:29] LABS: African American GFR (CKD) >90 (>60 ml/min/1.73 sqM); Anion Gap 5 mmol/L; Blood Urea Nitrogen 9 mg/dL (7-17); Calcium 8.7 mg/dL (8.4-10.2); Carbon Dioxide 29 mmol/L (22-30); Chloride 107 mmol/L (98-107); Glucose 107 mg/dL (74-99); Magnesium 1.9 mg/dL (1.6-2.3); Non-African American GFR(CKD) >90 (>60 ml/min/1.73 sqM); Potassium 4.1 mmol/L (3.5-5.1); Sodium 141 mmol/L (137-145)
--- NOTE | 2019-12-07 13:40 | P.DS ---
Providers Date of admission: 12/05/19 20:59 Expected date of discharge: 12/07/19 Attending physician: Larry Rodriguez MD Consults: 12/06/19 11:16 Consult Physician Routine Consulting Provider: Ninoska Carpio Consult Reason/Comments: medical management Do you want consulting provider notified?: Yes Primary care physician: Markus [facility] Hospital Course: 59-year-old female who presented to emergency room with a chief complaint of abdominal pain. Patient reports the pain is mostly located in the right lower quadrant. Patient also reports nausea but denies vomiting. She reports some loose stools. She denies fever or chills. Patient underwent workup in the emergency room including CAT scan which revealed acute appendicitis. Patient underwent laparoscopic appendectomy with Dr. Shaw. She was found to have microperforation of the appendix. She received IV antibiotics during hospitalization. Most recent WBC 7.1. Patient doing well postoperatively wit hout any immediate complications. Pain is controlled on medications. Tolerating diet without nausea or vomiting. Vital signs have been stable. She is stable for discharge home today. Please see EMR for further hospital course details. Patient requests no narcotics to be prescribed at the time of discharge. Patient instructed to alternate Tylenol and Motrin for pain control. Discharge Diagnosis: 1. Abdominal pain 2. Acute appendicitis Nurse practitioner note has been reviewed by physician. Signing provider agrees with the documented findings, assessment, and plan of care. Patient Condition at Discharge: Good Plan - Discharge Summary Discharge Rx Participant: No New Discharge Prescriptions: New Levofloxacin [Levaquin] 500 mg PO DAILY #7 tab Continue Omeprazole 40 mg PO DAILY Losartan Potassium [Cozaar] 100 mg PO DAILY Hydrocortisone Cream [Hydrocortisone 2.5% Cream] 1 applic TOPICAL TID PRN PRN Reason: Hemorrhoids Hydrochlorothiazide 25 mg PO DAILY FLUoxetine HCL [PROzac] 20 mg PO DAILY Rosuvastatin [Crestor] 10 mg PO HS Discharge Medication List FLUoxetine HCL [PROzac] 20 mg PO DAILY 12/05/19 [History] Hydrochlorothiazide 25 mg PO DAILY 12/05/19 [History] Hydrocortisone Cream [Hydrocortisone 2.5% Cream] 1 applic TOPICAL TID PRN 12/05/19 [History] Losartan Potassium [Cozaar] 100 mg PO DAILY 12/05/19 [History] Omeprazole 40 mg PO DAILY 12/05/19 [History] Rosuvastatin [Crestor] 10 mg PO HS 12/05/19 [History] Levofloxacin [Levaquin] 500 mg PO DAILY #7 tab 12/07/19 [Rx] Follow up Appointment(s)/Referral(s): Markus Barger [Primary Care Provider] - 12/11/19 3:15 pm Samuel Shaw MD [STAFF PHYSICIAN] - 12/14/19 3:30 pm Patient Instructions/Handouts: Laparoscopic Appendectomy (DC) Activity/Diet/Wound Care/Special Instructions: Tylenol or Motrin as needed for pain No lifting over 10 pounds You may shower. No soaking or tub baths Very light activity until you are reevaluated at your follow up appointment with your surgeon Discharge Disposition: HOME SELF-CARE
--- NOTE | 2019-12-07 17:53 | P.PN ---
Subjective Progress Note Date: 12/07/19 (delayed charting seen at 1030) Principal diagnosis: abdominal pain Patient is a 59-year-old female past medical history of newly diagnosed COPD not on inhalers, hypertension, dyslipidemia, and GERD who presented to the emergency department with complaints of abdominal pain. She was ultimately found to have acute pancreatitis and sepsis only underwent laparoscopic appendectomy on the morning of 12/06/19. Patient seen and examined at bedside. She isn't passing gas, no nausea, no vomiting, no abdominal pain. She'll follow up with Dr. Barger in 1 week. Objective - Vital Signs Vital signs: Vital Signs Temp 98.7 F 12/07/19 05:06 Pulse 55 L 12/07/19 05:06 Resp 16 12/07/19 05:06 BP 123/61 12/07/19 05:06 Pulse Ox 97 12/07/19 05:06 Intake & Output 12/06/19 12/07/19 12/07/19 18:59 06:59 18:59 Intake Total 2315 1600 850 Output Total 5 520 Balance 2310 1080 850 Intake: IV 975 850 Sodium Chloride 0.9% 1, 800 000 ml @ 100 mls/hr IV . Q10H [facility] Rx#:[id number] cefTRIAXone 1 gm In 50 Sodium Chloride 0.9% 50 ml @ 100 mls/hr IVPB Q12HR [facility] Rx#:[id number] Intake, IV Titration 800 1600 Amount IV Fluid Continuation 1, 800 000 ml @ 0 mls/hr IV .STK -MED ONE Rx#:[id number] Sodium Chloride 0.9% 1, 1300 000 ml @ 100 mls/hr IV . Q10H [facility] Rx#:[id number] cefTRIAXone 1 gm In 100 Sodium Chloride 0.9% 50 ml @ 100 mls/hr IVPB Q12HR [facility] Rx#:[id number] metroNIDAZOLE-NS PMX 500 200 mg In Saline 1 100ml.bag @ 100 mls/hr IVPB Q8H [facility] Rx#:[id number] Oral 540 Output: Urine 520 Estimated Blood Loss 5 Other: # Voids 3 - Exam General: non toxic, no distress, appears at stated age Derm: warm, dry Head: atraumatic, normocephalic, symmetric Eyes: EOMI, no lid lag, anicteric sclera Mouth: no lip lesion, mucus membranes moist Cardiovascular: S1S2 reg, no murmur, positive posterior tibial pulse bilateral, Lungs: CTA bilateral, no rhonchi, no rales , no accessory muscle use Abdominal: soft, nontender to palpation, no guarding, no appreciable organomegaly Ext: no gross muscle atrophy, no edema, no contractures - Labs CBC & Chem 7: 12/07/19 08:41 12/07/19 08:41 Labs: Abnormal Lab Results - Last 24 Hours (Table) 12/07/19 12/07/19 Range/Units 08:41 08:41 RBC 3.33 L (3.80-5.40) m/uL Hgb 10.8 L (11.4-16.0) gm/dL Hct 32.6 L (34.0-46.0) % Glucose 107 H (74-99) mg/dL Microbiology - Last 24 Hours (Table) 12/05/19 21:34 Blood Culture - Preliminary Blood No Growth after 24 hours Assessment and Plan Assessment: Acute appendicitis with microperforation - transition to oral abx X 1 week -Pain control -Antiemetics Hypertension - hydrochlorothiazide and losartan -Follow blood pressures Dyslipidemia -Statin therapy Recent nicotine dependency -Nicotine supplementation as needed COPD -Not chronically on inhalers will add as needed albuterol GERD -PPI DVT prophylaxis: Heparin Medically optimized for discharge
== END 2019-12-07 13:07 | disposition home or self-care (01) ==
LOC: EC 18:14 → 6NMEDSUR 20:59
PROVIDERS: ADMIT Internal Medicine; ATTEND Internal Medicine
DX: K35.32 Acute appendicitis with perforation, localized peritonitis, and gangrene, without abscess (principal); A41.9 Sepsis, unspecified organism; J44.9 Chronic obstructive pulmonary disease, unspecified; E78.5 Hyperlipidemia, unspecified; I10 Essential (primary) hypertension; K21.9 Gastro-esophageal reflux disease without esophagitis; F32.9 Major depressive disorder, single episode, unspecified; Z87.891 Personal history of nicotine dependence; Z90.710 Acquired absence of both cervix and uterus; Z82.5 Family history of asthma and other chronic lower respiratory diseases; Z80.8 Family history of malignant neoplasm of other organs or systems; Z79.899 Other long term (current) drug therapy; Z88.0 Allergy status to penicillin
CPT/HCPCS: 96376 ×2; 96361; 96374; 96375; 99285; 36415; 88304; 80053; 80048; 82150; 83605; 83690; 83735; 85025; 85027; 85610; 85730; 81001; 87040; 74177; 44970; G0378 ×3; J2250; J2270 ×3; J1644 ×2; J2710; J2405 ×2; J2001; J0696 ×3; J3010; J1885 ×2; J0330; J2704; C9113 ×3; J1170; Q9967

== ENCOUNTER → 2020-01-15 | Outpatient (CLI) | payer OTHER ==
--- NOTE | 2020-01-15 16:31 | US ---
EXAMINATION TYPE: US kidneys/renal and bladder DATE OF EXAM: 01/15/2020 COMPARISON: Correlation CT 12/05/2019 CLINICAL HISTORY: 60-year-old female N28.1 renal cyst. Right renal cyst visualized on CT TECHNIQUE: Multiple sonographic images of the kidneys and bladder are obtained. FINDINGS: EXAM MEASUREMENTS: Right Kidney: 11.6 x 4.5 x 4.4 cm Left Kidney: 10.3 x 4.7 x 4.5 cm Right Kidney: Lobulated, cystic lesion with septations upper pole= 2.9 x 1.7 x 2.2 cm. There seem to be multiple internal thin septations. No hydronephrosis. Left Kidney: Extrarenal pelvis= 1.5 cm. No hydronephrosis. Bladder: wnl Bilateral Jets seen: Only left jet visualized IMPRESSION: 1. 2.9 cm lobulated cystic lesion upper pole right kidney with multiple thin internal septations, Octaviano niak category 2F. CT or MRI follow-up is recommended in 6 and12 months. Subsequently, annual follow-u p to 5 years is recommended. 2. No hydronephrosis.
== END | disposition home or self-care (01) ==
LOC: RADUSWWP 10:51
PROVIDERS: ATTEND Family Medicine
DX: N28.1 Cyst of kidney, acquired (principal)
CPT/HCPCS: 76770

== ENCOUNTER → 2020-11-26 | Outpatient (CLI) | payer OTHER ==
--- NOTE | 2020-11-26 15:51 | MR ---
EXAMINATION TYPE: MR shoulder RT wo con DATE OF EXAM: 11/26/2020 COMPARISON: None HISTORY: Rt shoulder pain, limited range of motion, hx of prior surgery TECHNIQUE: Multiplanar, multisequence imaging of the right shoulder is performed without contrast. FINDINGS: Rotator Cuff: There is a full thickness rotator cuff tear with retraction of the tendon to the level of the acromion, tendon is attenuated and frayed Acromioclavicular Joint: Arthropathy changes present. There is a distal acromial spur. Glenohumeral Joint: Arthropathy changes present, there is spurring of the humeral head Labrum: The labrum appears grossly intact given limitation of non-arthrogram study. Biceps Tendon: Biceps tendon is displaced medially from the bicipital groove, there is fluid signal a long the long head of biceps tendon Bone marrow signal: Some pseudocysts are present in the humeral head. Other: Fluid signal is present in the subacromial subdeltoid bursa and along the subscapularis tendon at the musculotendinous junction level, subcoracoid space. IMPRESSION: Rotator cuff tear, osteoarthritis, displacement of the long head of biceps tendon, distal acromial sp ur
== END | disposition home or self-care (01) ==
LOC: RADMRIMAIN 08:11
PROVIDERS: ATTEND Orthopaedic Surgery
DX: M19.011 Primary osteoarthritis, right shoulder (principal); M75.101 Unspecified rotator cuff tear or rupture of right shoulder, not specified as traumatic; M67.813 Other specified disorders of tendon, right shoulder; E78.5 Hyperlipidemia, unspecified; I10 Essential (primary) hypertension

== ENCOUNTER → 2022-07-29 | Outpatient (CLI) | payer BC ==
--- NOTE | 2022-07-29 09:20 | MR ---
EXAMINATION TYPE: MR kidney wo/w con DATE OF EXAM: 07/29/2022 COMPARISON: CT abdomen and pelvis January 20, 2020 and December 05, 2019. Renal ultrasound December HISTORY: RENAL CYST CONTRAST: Standard multiplanar, multisequence MRI departmental protocol images were obtained without contrast a nd with 7 mL intravenous Gadavist gadolinium contrast. Imaging performed of the abdomen focusing on the bilateral kidneys. FINDINGS: Slightly suboptimal as there is respiratory motion artifact degradation Kidneys: Kidneys remain symmetric and within normal limits in size. There is persistent thin-walled p artially exophytic cyst medially at upper pole level right kidney measuring 2.6 x 2.5 cm axial image 41 x 2.6 cm cranial caudal dimension coronal image 24 with thin septa. No suspicious thickened septa or nodular solid enhancement. There is additional exophytic round nonenhancing simple cyst posteriorl y upper to mid pole left kidney axial image 41 series 701. Mild prominence of left renal pelvis witho ut calyceal dilatation consistent with extrarenal pelvis. No right-sided hydronephrosis. No concernin g solid or cystic renal mass in either kidney. Other: Occasional subcentimeter thin-walled cysts scattered throughout the left hepatic lobe. Lung ba ses are clear. The spleen, pancreas, both adrenal glands appear within normal limits. Gallbladder has dependent density suggesting gallbladder sludge. There is moderate extra hepatic biliary dilatation up to 12 mm coronal image 15 with slight tapering towards the ampulla. There is mild to moderate cent ral intrahepatic biliary dilatation. Pancreatic duct is mildly dilated in the head. No obstructing ma ss clearly seen. No suspicious small or large bowel dilatation. No intra-abdominal ascites. No AAA. O sseous structures are intact. IMPRESSION: 1.Fairly stable 2.5 cm thin-walled cyst with slight lobulation and a few thin internal septa, Bosniak 2 lesion. 2. Mild to moderate biliary dilatation has similar appearance to 2020 MRI up to 12 mm suggesting cayetano gn etiology. Correlate clinically.
== END | disposition home or self-care (01) ==
LOC: RADMRIMAIN 07:51
PROVIDERS: ATTEND Family Medicine
DX: N28.1 Cyst of kidney, acquired (principal)
CPT/HCPCS: 74183; A9585

== ENCOUNTER 2022-09-24 09:11 | Day surgery (SDC) | payer BC ==
[2022-09-23 10:42] VITALS: BMI 25.7
--- NOTE | 2022-09-24 07:44 | P.GSHP ---
History of Present Illness H&P Date: 09/24/22 CHIEF COMPLAINT: Colon screen HISTORY OF PRESENT ILLNESS: The patient is a 62-year-old female who presents for colon screen. Lower endoscopy was offered for further evaluation and management. PAST MEDICAL HISTORY: Please see list. PAST SURGICAL HISTORY: Please see list. MEDICATIONS: Please see list. ALLERGIES: Please see list. SOCIAL HISTORY: No illicit drug use FAMILY HISTORY: No reports of Crohn disease or ulcerative colitis. REVIEW OF ORGAN SYSTEMS: CONSTITUTIONAL: No reports of fevers or chills. PHYSICAL EXAM: VITAL SIGNS: Stable GENERAL: Well-developed pleasant in no acute distress. HEENT: No scleral icterus. Extraocular movements grossly intact. Moist buccal mucosa. NECK: Supple without lymphadenopathy. CHEST: Unlabored respirations. Equal bilateral excursions. CARDIOVASCULAR: Regular rate and rhythm. Distal 2+ pulses. ABDOMEN: Soft, nontender, nondistended. MUSCULOSKELETAL: No clubbing, cyanosis, or edema. ASSESSMENT: 1. Colon screen. PLAN: 1. Recommend proceeding with a lower endoscopy Past Medical History Past Medical History: COPD, Hyperlipidemia, Hypertension Additional Past Medical History / Comment(s): positive cologuard,having bleeding with stools,hx hemorrhoids internal and external History of Any Multi-Drug Resistant Organisms: None Reported Past Surgical History: Back Surgery, Hysterectomy Additional Past Surgical History / Comment(s): dental surgery. right shoulder surgery,sidney cataracts Past Anesthesia/Blood Transfusion Reactions: No Reported Reaction Additional Past Anesthesia/Blood Transfusion Reaction / Comment(s): no hx blood transfusion Smoking Status: Current every day smoker - Past Family History Father History Unknown: Yes Mother Family Medical History: COPD Brother(s) Additional Family Medical History / Comment(s): skin cancer stage 4 Medications and Allergies Home Medications Medication Instructions Recorded Confirmed Type FLUoxetine HCL [PROzac] 40 mg PO BID 12/05/19 09/23/22 History Losartan Potassium [Cozaar] 100 mg PO QAM 12/05/19 09/23/22 History Omeprazole 40 mg PO QAM 12/05/19 09/23/22 History Rosuvastatin [Crestor] 20 mg PO HS 12/05/19 09/23/22 History hydroCHLOROthiazide 25 mg PO DAILY 12/05/19 09/23/22 History Isosorbide Mononitrate [Isosorbide 30 mg PO QAM 09/23/22 09/23/22 History Mononitrate ER] Allergies Allergy/AdvReac Type Severity Reaction Status Date / Time Penicillins Allergy Anaphylaxis Verified 09/23/22 10:27 propoxyphene Allergy Anaphylaxis Verified 09/23/22 10:27 [From TobiasN]
[~2022-09-24 09:11] MED LIST: LACTATED RINGERS 1,000 ML IV SCH
[2022-09-24 09:33] VITALS: RESP 16; TEMP 97.4
[2022-09-24] MEDS ORDERED: GLYCOPYRROLATE 0.2 MG/ML 2 ML VIAL ONE (10:22)
[2022-09-24] MEDS ORDERED: PROPOFOL 10 MG/ML 20 ML VIAL IV ONE (10:22)
[2022-09-24] MEDS ORDERED: ONDANSETRON 4 MG/2 ML VIAL ONE (10:22)
--- NOTE | 2022-09-24 10:53 | P.PCN ---
Date of Procedure: 09/24/22 Description of Procedure: PREOPERATIVE DIAGNOSIS: Colonoscopy screening. POSTOPERATIVE DIAGNOSIS: Colonoscopy screening. Diverticulosis, scattered. OPERATION: Colonoscopy to the cecum, ileocecal valve and appendiceal orifice. SURGEON: Antoinette Gallagher MD. ANESTHESIA: MAC. INDICATIONS: The patient is a 62-year-old female who presents for colonoscopy screening. Benefits and risks were described and informed consent was obtained. DESCRIPTION OF PROCEDURE: The patient had undergone Sutab prep. The patient had been brought into the operating room and laid in the left lateral decubitus position. After adequate intravenous sedation, the rectum was examined with 2% lidocaine jelly. No external hemorrhoids were encountered. The rectal tone was within normal limits. No lesions were palpated in the rectal vault. An Olympus colonoscope was advanced until the cecum, ileocecal valve and appendiceal orifice were clearly viewed. The prep was excellent. Scattered diverticulosis was encountered. No colonic polyps were found. No evidence of focal colitis was found. Retroflexion of the scope demonstrated grade 1 internal hemorrhoids without active bleeding or inflammation. The colon was desufflated. The patient had tolerated the procedure well. Withdrawal time was over 6 minutes. FINDINGS: Aronchick preparation quality scale 1 (1-5) Internal hemorrhoids, grade 1 No external prolapsed hemorrhoids. No arteriovenous malformations. No adenomatous polyps. No focal colitis. RECOMMENDATIONS: Lower endoscopy in 10 years, 2031 Plan - Discharge Summary Discharge Rx Participant: No New Discharge Prescriptions: Continue Omeprazole 40 mg PO QAM Losartan Potassium [Cozaar] 100 mg PO QAM hydroCHLOROthiazide 25 mg PO DAILY FLUoxetine HCL [PROzac] 40 mg PO BID Rosuvastatin [Crestor] 20 mg PO HS Isosorbide Mononitrate [Isosorbide Mononitrate ER] 30 mg PO QAM Discharge Medication List FLUoxetine HCL [PROzac] 40 mg PO BID 12/05/19 [History] Losartan Potassium [Cozaar] 100 mg PO QAM 12/05/19 [History] Omeprazole 40 mg PO QAM 12/05/19 [History] Rosuvastatin [Crestor] 20 mg PO HS 12/05/19 [History] hydroCHLOROthiazide 25 mg PO DAILY 12/05/19 [History] Isosorbide Mononitrate [Isosorbide Mononitrate ER] 30 mg PO QAM 09/23/22 [History] Follow up Appointment(s)/Referral(s): Antoinette Gallagher MD [STAFF PHYSICIAN] - As Needed Patient Instructions/Handouts: Diverticulosis (GEN), Diverticulosis Diet (GEN) Activity/Diet/Wound Care/Special Instructions: Repeat colonoscopy 10 years2031 Discharge Disposition: HOME SELF-CARE
[2022-09-24 11:05] VITALS: BP 121/78; PULSE 74
== END 2022-09-24 11:58 | disposition home or self-care (01) ==
LOC: ORWHC2ENDO 09:11
PROVIDERS: ATTEND Surgery Plastic and Reconstructive Surgery
DX: Z12.11 Encounter for screening for malignant neoplasm of colon (principal); K64.0 First degree hemorrhoids; K57.30 Diverticulosis of large intestine without perforation or abscess without bleeding; J44.9 Chronic obstructive pulmonary disease, unspecified; E78.5 Hyperlipidemia, unspecified; K21.9 Gastro-esophageal reflux disease without esophagitis; F17.200 Nicotine dependence, unspecified, uncomplicated; F12.90 Cannabis use, unspecified, uncomplicated; I10 Essential (primary) hypertension; Z98.890 Other specified postprocedural states; Z98.41 Cataract extraction status, right eye; Z98.42 Cataract extraction status, left eye; Z80.8 Family history of malignant neoplasm of other organs or systems; Z79.899 Other long term (current) drug therapy; Z79.1 Long term (current) use of non-steroidal anti-inflammatories (NSAID); Z88.0 Allergy status to penicillin; Z88.5 Allergy status to narcotic agent
CPT/HCPCS: 45378; J2405; J2704

== ENCOUNTER 2023-05-21 11:12 | Day surgery (SDC) | payer BC, OTHER ==
[2023-05-19 15:03] VITALS: BMI 26.1
[2023-05-21] MEDS ORDERED: LACTATED RINGERS 1,000 ML IV ONE (11:41)
[2023-05-21 11:51] VITALS: TEMP 97.8
[2023-05-21] MEDS ORDERED: PROPOFOL 10 MG/ML 20 ML VIAL IV ONE (12:56)
--- NOTE | 2023-05-21 13:16 | P.PCN ---
Date of Procedure: 05/21/23 Procedure(s) Performed: BRIEF HISTORY: Patient is a 63-year-old, pleasant, at female scheduled for an upper endoscopy as a part of evaluation of long-standing history of GERD and intermittent dysphagia to solids. PROCEDURE PERFORMED: Esophagogastroduodenoscopy with biopsy. PREOPERATIVE DIAGNOSIS: Long-standing history of GERD and intermittent dysphagia to solids. IV sedation per anesthesia. PROCEDURE: After informed consent was obtained, the patient was brought into the endoscopy unit. IV sedation was administered by Anesthesia under continuous monitoring. Initially the Olympus GIF-140 video endoscope was inserted into the mouth. Esophagus intubated without any difficulty. It was gradually advanced into the distal esophagus. The lower esophageal sphincter appeared slightly tight. No stricture noted. The scope was advanced into the stomach and duodenum and carefully examined. The bulb and the second part of the duodenum appeared normal. The scope at this time was withdrawn to the stomach, adequately insufflated with air, and upon careful examination, mucosa of the antrum, bodiffuse gastritis and biopsies were done from the antrum of the stomach. Mucosa of thecardia and the fundus appeared normal. The scope was then withdrawn into the esophagus. The GE junction was located at 41 cm from the incisors. The esophagus appeared normal. There were no erosions or ulcerations seen. There was no evidence of esophageal stricture. The lower esophageal sphincter appeared slightly tight but did not impede the passage of the scope. Biopsies were done from the distal esophagus and the patient tolerated the procedure well. IMPRESSION: 1. Normal-appearing esophagus with no evidence of esophagitis or esophageal stricture. Slightly tight lower esophageal sphincter 2. Diffuse gastritis RECOMMENDATIONS: The findings of this examination were discussed with the patient as well as a family. She was advised to increase omeprazole to 20 mg twice daily before breakfast and dinner and follow antireflux measures.. if she still continues to have dysphagia despite aggressive acid suppressive therapy she may a candidate for of the manometry to evaluate for esophageal dysmotility causing her symptoms
[2023-05-21 13:35] VITALS: BP 125/72; PULSE 52; RESP 16
== END 2023-05-21 14:09 | disposition home or self-care (01) ==
LOC: ORWHC2ENDO 11:12
PROVIDERS: ATTEND Internal Medicine Gastroenterology
DX: K29.50 Unspecified chronic gastritis without bleeding (principal); K21.00 Gastro-esophageal reflux disease with esophagitis, without bleeding; K31.89 Other diseases of stomach and duodenum; I10 Essential (primary) hypertension; E78.5 Hyperlipidemia, unspecified; J44.9 Chronic obstructive pulmonary disease, unspecified; F17.210 Nicotine dependence, cigarettes, uncomplicated; N30.90 Cystitis, unspecified without hematuria; Z79.899 Other long term (current) drug therapy; Z88.0 Allergy status to penicillin; Z88.5 Allergy status to narcotic agent
CPT/HCPCS: 43239; 88305